=== PATIENT | female | born 1960 | race Caucasian/White ===

== ENCOUNTER 2017-05-23 18:09 | Inpatient (IN) | payer OTHER ==
[~2017-05-23] VITALS: Ht 157.5 cm; Wt 67.2 kg
[~2017-05-23 18:09] MED LIST: DOCU-144 PO; GLIM4TAB55 PO; HYDR-906 PO; IBUP-1542 PO; INSU100C SQ; LANT3I SC; LISI30TA PO; METF500T4 PO
[2017-05-23 20:00] VITALS: Ht 157.5 cm; Wt 67.2 kg
[2017-05-23 20:41] VITALS: PULSE 85
[2017-05-23 21:00] VITALS: BP 128/71; RESP 15
[2017-05-23] MEDS ORDERED: LORAZEPAM 0.5 MG TAB PO PRN (21:30)
[2017-05-23] MEDS ORDERED: NITROGLYCERIN (SL) 0.4 MG TAB SL PRN (21:30)
[2017-05-23] MEDS: ACETAMINOPHEN 325 MG TAB PO PRN (21:54)
[2017-05-23] MEDS ORDERED: GLUCOSE GEL 15 GRAM TUBE PO PRN ×2 (22:00)
[2017-05-23] MEDS ORDERED: GLUCAGON 1 MG INJ IM PRN (22:00)
[2017-05-23] MEDS ORDERED: GLUCOSE GEL 15 GRAM TUBE BUCCAL PRN (22:00)
[2017-05-23] MEDS ORDERED: DEXTROSE 50% 50 ML SYRINGE IV PRN ×2 (22:00)
[2017-05-23] MEDS: ATORVASTATIN 20 MG TAB PO SCH (23:38)
[2017-05-23] MEDS: HEPARIN 5,000 UNIT/0.5 ML VIAL SC SCH (23:48)
[2017-05-23] MEDS: INSULIN GLARGINE [LANtus] 3 ML PEN SC SCH (23:48)
[2017-05-24] VITALS (13 sets, daily range): BP systolic 116–131; BP diastolic 63–75; PULSE 73–94; RESP 15–20
[2017-05-24 01:15] LABS: BASOPHILS % 0.6 % (0.0-2.0); EOSINOPHILS # 0.1 10^3/ul (0.0-0.5); HEMATOCRIT 35.3 % (37.0-47.0); LYMPHOCYTES # 2.3 10^3/ul (0.8-2.9); LYMPHOCYTES % 35.5 % (15.0-51.0); MEAN CORPUSCULAR HEMOGLOBIN 30.8 pg (29.0-33.0); MEAN CORPUSCULAR VOLUME 90.7 fl (82.0-101.0); MEAN PLATELET VOLUME 10.4 fl (7.4-10.4); MONOCYTE # 0.5 10^3/ul (0.3-0.9); MONOCYTES % 7.3 % (0.0-11.0); NEUTROPHILS % 54.1 % (39.0-77.0); PLATELET COUNT 198 10^3/UL (140-415); RED BLOOD COUNT 3.89 10^6/ul (4.20-5.40); RED CELL DISTRIBUTION WIDTH 12.6 % (11.5-14.5); WHITE BLOOD COUNT 6.5 10^3/ul (4.8-10.8)
[2017-05-24 01:36] LABS: ALBUMIN 3.1 g/dl (3.3-4.9); ALBUMIN/GLOBULIN RATIO 1.1; BILIRUBIN,INDIRECT 0.1 mg/dl (0-1.1); BILIRUBIN,TOTAL 0.1 mg/dl (0.2-1.3); CALCIUM 8.7 mg/dl (8.4-10.2); CREATINE KINASE 28 IU/L (23-200); CREATININE 0.58 mg/dl (0.44-1.00); MAGNESIUM 1.8 mg/dl (1.7-2.5); POTASSIUM 3.9 mmol/L (3.5-5.1); TOTAL PROTEIN 5.9 g/dl (6.1-8.1)
[2017-05-24 01:49] LABS: CK-MB 0.42 ng/ml (0.0-2.4)
[2017-05-24 01:54] LABS: TROPONIN-I < 0.012 ng/ml (0.00-0.12)
[2017-05-24] MEDS: ACCU-CHEK XX SCH (02:00)
[2017-05-24 02:50] LABS: THYROID STIMULATING HORMONE 1.73 MIU/L (0.465-4.680)
[2017-05-24] MEDS ORDERED: GLIMEPIRIDE 4 MG TAB PO SCH (07:25)
[2017-05-24 07:38] LABS: CREATINE KINASE 27 IU/L (23-200)
[2017-05-24 07:45] LABS: CK-MB 0.43 ng/ml (0.0-2.4)
[2017-05-24 07:47] LABS: TROPONIN-I < 0.012 ng/ml (0.00-0.12)
[2017-05-24] MEDS: ACETAMINOPHEN 325 MG TAB PO PRN ×2 (08:15→23:36)
[2017-05-24] MEDS: LISINOPRIL 10 MG TAB GTB SCH (08:16)
[2017-05-24] MEDS: INSULIN ASPART [NOVOLOG] 3 ML PEN SC SCH ×4 (08:20→20:46)
[2017-05-24] MEDS: HEPARIN 5,000 UNIT/0.5 ML VIAL SC SCH ×2 (08:20→20:45)
--- NOTE | 2017-05-24 09:41 | HP ---
Date/Time of Note Date/Time of Note DATE: 05/24/17 TIME: 09:41 Assessment/Plan VTE Prophylaxis VTE Prophylaxis Intervention: SCD's Lines/Catheters IV Catheter Type (from Nrsg): Saline Lock Assessment/Plan Assessment/Plan This is a 56-year-old female who initially presented to outside hospital for evaluation of 1 week duration of chest pain with radiation to neck and right upper and lower extremities. 1. Reproducible Chest pain/right upper neck and lower extremity numbness. Unlikely cardiac etiology. Most likely her symptoms secondary to underlying uncontrolled diabetes and possible diabetic neuropathy. Improved with pain medications. -Rule out ACS with 3 serial troponins, serial EKG and 2D echocardiogram. -Obtain vitamin D and B12 to rule out other endocrinopathies causing patient's symptoms. -We will also obtain A1c, TSH and fasting lipid panel. -Start Gabapentin 2. Hypertension. Stable -Continue antihypertensives 3. Type 2 diabetes,uncontrolled -Follow-up A1c -Continue Lantus, Accu-Cheks and insulin sliding scale. Hold Metformin for now. -Will consider starting premeal Aspart -DM education 4. Dyslipidemia -On statin Plan: Follow-up with labs. Continue with pain control. If troponins negative, consider discharge planning in a.m. Rest of the management depend on clinical course. Approximately 60 minutes was spent on this history and physical. Case discussed with Dr.Rahi SINCLAIR/WES Admit Date/Time Admit Date/Time May 23, 2017 at 19:39 Hx of Present Illness This is a 56-year-old female with a past medical history of dyslipidemia, type 2 diabetes, hypertension, glaucoma, cholecystectomy, C- sections, who initially presented to outside hospital for evaluation of 1 week duration of chest pain. Her pain was not associated with any activities. Patient also had radiation of pain to right side of the neck and back of the head with right arm and right leg numbness. Her chest pain also was reproducible. Initial labs were unremarkable and the outside hospital except for glucose 324. Patient was transferred to [facility] for insurance purposes. At my encounter with the patient, she denied any palpitation, shortness of breath, loss of consciousness, nausea, vomiting, abdominal pain, fever or chills. She also did not have any chest pain anymore. However, patient continued to have radiating pain on right side of the neck and both right arm and leg. Troponin is negative. EKG negative for any acute ST or T-wave changes. Vital signs within acceptable range. ROS A 12 point review of system was assessed and is negative other than what is mentioned in HPI. PMH/Family/Social Past Medical History see HPI Past Surgical History See HPI Social History Denied history of smoking, alcohol or illicit drug use. Smoking Status: Never smoker Exam/Review of Systems Vital Signs Vitals Vital Signs Date Time Temp Pulse Resp B/P Pulse Ox O2 Delivery O2 Flow Rate FiO2 05/24/17 08:11 81 05/24/17 07:39 98.2 20 131/75 96 Intake and Output 05/23/17 05/23/17 05/24/17 15:00 23:00 07:00 Intake Total 360 ml 540 ml Balance 360 ml 540 ml Exam Exam General: Well developed female not in any acute distress . HEENT: Normocephalic, Atraumatic, No laceration or hematoma; Eyes: PEERL, Conjunctiva clear, Anicteric sclera Neck: Supple without any lymphadenopathy, nontender, no JVD, no carotid bruits, trachea midline, no thyromegaly Cardiac: S1, S2 auscultated, regular rhythm and rate, no mumurs or gallop Pulmonary: Normal respiratory effort. Chest clear to auscultation bilaterally, no adventitious breath sounds GI: Abdomen normal to inspection. Soft, non tender, non- distended, no masses, no rebound tenderness or guarding. Bowel sounds active on all four quadrants Genitourinary: Deferred Extremities: No cyanosis, clubbing, or edema. Pulses [2+] bilaterally. Full ROM on all four extremities. No focal weakness appreciated. Neurologic: Alert to person, place, time, and situation. Affect appropriate, intact sensation. Skin: Clean,dry, and intact. No ecchymosis, no rashes, or lesions Labs Result Diagram: 05/24/175405/24/1754 Medications Medications Current Medications Diagnostic Test (Pha) (Accu-Chek) 1 XX ; Start 05/24/17 at 02:00 Nitroglycerin (Nitroglycerin (Sl Tab) 0.4 Mg) 1 tab Q5M PRN SL ANGINA Last administered on 05/23/17t 21:56; Admin Dose 1 TAB; Start 05/23/17 at 21:30 Acetaminophen (Tylenol Tab) 650 mg Q6H PRN PO PAIN AND OR ELEVATED TEMP Last administered on 05/24/17 08:15; Admin Dose 650 MG; Start 05/23/17 at 21:30 Heparin Sodium (Porcine) (Heparin (5000 Units/0.5 ml)) 5,000 unit BID SC Last administered on 05/24/17 08:20; Admin Dose 5,000 UNIT; Start 05/23/17 at 22:18 Lorazepam (Ativan) 0.5 mg Q3H PRN PO ANXIETY; Start 05/23/17 at 21:30 Insulin Glargine (Lantus) 35 unit DAILY@20 SC Last administered on 05/23/17 23 :48; Admin Dose 35 UNIT; Start 05/23/17 at 21:00 Lisinopril (Zestril) 30 mg DAILY GTB Last administered on 05/24/17 08:16; Admin Dose 30 MG; Start 05/24/17 at 09:00 Atorvastatin Calcium (Lipitor) 20 mg HS PO Last administered on 05/23/17 23:38 ; Admin Dose 20 MG; Start 05/23/17 at 22:19 Miscellaneous Information 1 ea NOTE XX ; Start 05/23/17 at 22:00 Glucose (Glutose) 15 gm Q15M PRN PO DECREASED GLUCOSE; Start 05/23/17 at 22:00 Glucose (Glutose) 22.5 gm Q15M PRN PO DECREASED GLUCOSE; Start 05/23/17 at 22: 00 Dextrose (D50w Syringe) 25 ml Q15M PRN IV DECREASED GLUCOSE; Start 05/23/17 at 22:00 Dextrose (D50w Syringe) 50 ml Q15M PRN IV DECREASED GLUCOSE; Start 05/23/17 at 22:00 Glucagon (Glucagen) 1 mg Q15M PRN IM DECREASED GLUCOSE; Start 05/23/17 at 22:00 Glucose (Glutose) 15 gm Q15M PRN BUCCAL DECREASED GLUCOSE; Start 05/23/17 at 22 :00 YULIYA DAVIS NP May 24, 2017 09:41
[2017-05-24] MEDS: ATORVASTATIN 20 MG TAB PO SCH (20:34)
[2017-05-24] MEDS: GABAPENTIN 100 MG CAP PO SCH (20:34)
[2017-05-24] MEDS: INSULIN GLARGINE [LANtus] 3 ML PEN SC SCH (20:46)
[2017-05-25] VITALS (7 sets, daily range): BP systolic 102–116; BP diastolic 62–66; PULSE 73–90; RESP 15–16
[2017-05-25] MEDS: ACCU-CHEK XX SCH (02:48)
[2017-05-25] MEDS: INSULIN ASPART [NOVOLOG] 3 ML PEN SC SCH ×4 (07:57→11:50)
[2017-05-25] MEDS: LISINOPRIL 10 MG TAB GTB SCH (08:13)
[2017-05-25] MEDS: GABAPENTIN 100 MG CAP PO SCH ×2 (08:13→13:00)
[2017-05-25] MEDS: HEPARIN 5,000 UNIT/0.5 ML VIAL SC SCH (08:20)
[2017-05-25] MEDS ORDERED: ERGOCALCIFEROL 50,000 UNIT CAP PO SCH (09:00)
[2017-05-25] MEDS ORDERED: CHOLECALCIFEROL 2,000 UNIT CAP PO SCH (09:00)
[2017-05-25] MEDS ORDERED: ERGOCALCIFEROL 50,000 UNIT CAP PO ONE (10:00)
--- NOTE | 2017-05-25 10:06 | PDOCDIS ---
Discharge Instructions DIAGNOSIS Discharge Diagnosis Atypical right sided chest wall pain my: Diabetes mellitus type 2 not adequately controlled; vitamin D deficiency; hyperlipidemia CONDITION Patient Condition: Good HOME CARE INSTRUCTIONS: Special Diet: Diabetic ACTIVITY: Activity Restrictions: No Restrictions FOLLOW UP/APPOINTMENTS Follow-up Plan Follow-up with primary care physician at [facility]. His needs to be done within the next 2 weeks for evaluation of chronic right chest wall pain which may be secondary to statin therapy SCHOOL/WORK RELEASE May return to School/Work with: No Restrictions ERIKA CLIFFORD MD May 25, 2017 10:06
[2017-05-25] MEDS ORDERED: CHOL200073 PO (10:09)
[2017-05-25] MEDS ORDERED: GLIM4TAB55 PO (10:09)
[2017-05-25] MEDS ORDERED: METF500T4 PO (10:09)
[2017-05-25] MEDS ORDERED: ATOR20TA65 PO (10:09)
--- NOTE | 2017-05-25 10:12 | DS ---
Date/Time of Note Date/Time of Note DATE: 05/25/17 TIME: 10:10 Discharge Summary Admission/Discharge Info Admit Date/Time May 23, 2017 at 19:39 Discharge Date/Time May 25, 2017 Discharge Diagnosis Atypical right sided chest wall pain my: Diabetes mellitus type 2 not adequately controlled; vitamin D deficiency; hyperlipidemia: Hypertension Patient Condition: Good Hx of Present Illness This is a 56-year-old female with a past medical history of dyslipidemia, type 2 diabetes, hypertension, glaucoma, cholecystectomy, C- sections, who initially presented to outside hospital for evaluation of 1 week duration of chest pain. Her pain was not associated with any activities. Patient also had radiation of pain to right side of the neck and back of the head with right arm and right leg numbness. Her chest pain also was reproducible. Initial labs were unremarkable and the outside hospital except for glucose 324. Patient was transferred to [facility] for insurance purposes. At my encounter with the patient, she denied any palpitation, shortness of breath, loss of consciousness, nausea, vomiting, abdominal pain, fever or chills. She also did not have any chest pain anymore. However, patient continued to have radiating pain on right side of the neck and both right arm and leg. Troponin is negative. EKG negative for any acute ST or T-wave changes. Vital signs within acceptable range. Hospital Course Charming 56-year-old female with cardiac risk factors. She has gone through formalized rule out protocol with negative troponins. On review of her history this is extremely atypical and not characteristic of cardiac symptomatology at all. As such she is stable for discharge. Please note her blood sugar control is in adequate. We will be making adjustments to her regimen to see if we can improve her glycemic control. She will now be discharged in improved condition as compared to the time of admission. She has no known communicable diseases she is not hazard to herself or others she is competent for medical decision-making her rehabilitation potential is good. She will follow-up with her colleagues at [facility] in the next 10 days. Home Meds Active Scripts Atorvastatin Calcium (Atorvastatin Calcium) 20 Mg Tablet, 20 MG PO HS for 30 Days, TAB Prov:ERIKA CLIFFORD MD 05/25/17 Cholecalciferol (Vitamin D3) (VITAMIN D-3) 2,000 Unit Capsule, 2000 UNIT PO DAILY for 30 Days, CAP Prov:ERIKA CLIFFORD MD 05/25/17 Metformin Hcl* (Metformin Hcl*) 500 Mg Tablet, 500 MG PO BID WITH MEALS for 30 Days, #60 TAB Prov:ERIKA CLIFFORD MD 05/25/17 Glimepiride* (Amaryl*) 4 Mg Tablet, 4 MG PO BID WITH MEALS for 30 Days, #60 TAB Prov:ERIKA CLIFFORD MD 05/25/17 Docusate Sodium* (Colace*) 100 Mg Capsule, 100 MG PO TID for 3 Days, #30 CAP Prov:MOISES RUBALCAVA Isabel 05/11/16 Ibuprofen* (Motrin*) 600 Mg Tab, 600 MG PO Q6, #30 TAB Prov:KHADAR,MOISES C 05/11/16 Hydrocodone/Acetaminophen ([place] 5-325 Tablet) 1 Each Tablet, 1 EACH PO Q4, #20 TAB Prov:MOISES RUBALCAVA Isabel 05/11/16 Reported Medications Lisinopril* (Zestril*) 30 Mg Tablet, 30 MG PO DAILY, #30 TAB 05/24/16 Insulin Glargine* (Lantus*) 100 Unit/Ml Soln, 1 UNIT SC QHS, #1 VIAL 05/24/16 Insulin Lispro (Humalog) 100 Unit/1 Ml Cartridge, 100 UNIT SQ 05/24/16 Primary Care Provider [facility] Time spent on discharge: > 30 minutes Pending Labs Laboratory Tests Test 05/24/17 11:42 05/24/17 17:16 05/24/17 17:45 05/24/17 20:32 Bedside Glucose 291mg/dL (70-220) 237mg/dL (70-220) 294mg/dL (70-220) Troponin I < 0.012ng/ml (0.00-0.12) Test 05/25/17 01:31 05/25/17 07:51 Bedside Glucose 275mg/dL (70-220) 165mg/dL (70-220) ERIKA CLIFFORD MD May 25, 2017 10:12
--- NOTE | 2017-05-28 14:16 | RADRPT ---
Echocardiogram Report Patient Name: ALMA ROSA YUN Gender: Female Date: 1960 Study Date: 25-May-2017 Hospitalist Physician: CYNDI Location: I Ref. Physician: YULIYA DAVIS Quality: Adequate Procedures: Transthoracic echocardiogram with 2D, M-Mode, and Doppler examination, poor subcostal images. Indications: Chest Pain. 2D/M Mode Doppler Measurement Value Normal Ranges Measurement Value Normal Ranges AoR Diam MM 2.5 cm AV Peak Jesús 1.1 m/sec ACS MM 1.7 cm AV Peak PG 4.8 mmHg LVIDd 2D 3.3 3.5 - 5.6 cm LVOT Peak Jesús 0.8 m/sec LVIDs 2D 2.1 2.1 - 4.1 cm LVOT Peak PG 2.7 mmHg LVPWd 2D 0.8 0.6 - 1.1 cm MV E Peak Jesús 0.8 m/sec IVSd 2D 1.0 0.6 - 1.1 cm MV A Peak Jesús 0.5 m/sec EDV 2D 45.6 cm3 MV E/A 1.5 ESV 2D 9.1 cm3 MV Decel Time 150 msec LA Dimen 2D 3.2 2.3 - 4.0 cm MV Decel [place] 5 MV E/A 1.5 PV Peak Jesús 0.9 m/sec PV Peak PG 3.0 mmHg Findings Left Ventricle: Normal left ventricular systolic function. Normal left ventricular cavity size. Normal left ventricular wall thickness. Ejection fraction is visually estimated at 60 %. Tissue Doppler/Mitral Doppler indices are within normal limits. E/E`=7. E`=0 cm/s. Right Ventricle: Normal right ventricular size. Normal right ventricular systolic function. Left Atrium: The left atrium is normal in size. Right Atrium: The right atrium is normal in size. Atrial Septum: Not well visualized. Mitral Valve: Normal appearance of the mitral valve. Trace mitral regurgitation. Aortic Valve: No significant aortic stenosis or insufficiency. Normal trileaflet aortic valve structure. Tricuspid Valve: Normal appearance and function of the tricuspid valve with trace physiologic regurgitation. Pulmonic Valve: Normal pulmonic valve appearance. No evidence of pulmonic regurgitation. Pericardium: Normal pericardium with no significant pericardial effusion. Aorta: Normal aortic root. IVC: Normal size and normal respiratory collapse consistent with normal right atrial pressure. Pulmonary Artery: Normal pulmonary artery size. Conclusions 1.Normal left ventricular systolic function. Normal left ventricular cavity size. Normal left ventricular wall thickness. Ejection fraction is visually estimated at 60 %. Tissue Doppler/Mitral Doppler indices are within normal limits. E/E`=7. E`=0 cm/s. 2.Normal appearance of the mitral valve. Trace mitral regurgitation. 3.Normal appearance and function of the tricuspid valve with trace physiologic regurgitation. Electronically Signed By: Robbie Lamb 28-May-2017 14:15:20 -0700 Patient Name: ALMA ROSA YUN Study Date: 25-May-2017 [id number]
== END 2017-05-25 13:18 | disposition home or self-care (01) | DRG 313 ==
LOC: TEL 19:39
PROVIDERS: ADMIT Internal Medicine; ATTEND Internal Medicine
DX: R07.89 Other chest pain (principal); E11.42 Type 2 diabetes mellitus with diabetic polyneuropathy; E11.65 Type 2 diabetes mellitus with hyperglycemia; I10 Essential (primary) hypertension; E78.5 Hyperlipidemia, unspecified; Z79.4 Long term (current) use of insulin
CPT/HCPCS: 80053; 82550; 82553; 82607; 82652; 82962; 83036; 83735; 84100; 84443; 84484; 85025; 93306; J1644; J1815

== ENCOUNTER 2017-10-14 09:18 | Day surgery (SDC) | END 2017-10-14 15:15 | disposition home or self-care (01) ==

== ENCOUNTER 2019-01-18 21:41 | Emergency (ER) | payer OTHER ==
[~2019-01-18] VITALS: Ht 154.9 cm; Wt 63.0 kg
[~2019-01-18 21:41] MED LIST changes: +ATOR20TA65 PO; +CHOL200073 PO; -HYDR-906 PO; -IBUP-1542 PO; -INSU100C SQ; -LANT3I SC; +METF500T24 PO; -METF500T4 PO
[2019-01-18 22:10] VITALS: Ht 154.9 cm; Wt 63.0 kg
[2019-01-18] MEDS ORDERED: SODIUM CHLORIDE 0.9% 1L BAG IV* STA (22:10)
[2019-01-18] MEDS ORDERED: ONDANSETRON 4 MG INJ IV STA ×2 (22:14→23:36)
[2019-01-18] MEDS ORDERED: KETOROLAC 30 MG INJ IV STA (22:14)
[2019-01-18] MEDS ORDERED: morphine 4 MG/ML VIAL IV STA (23:36)
--- NOTE | 2019-01-18 23:47 | ERD ---
ER Documentation Chief Complaint Chief Complaint right flank pain radiating around to front lower abd/pelvis x 6 hours HPI This is a 58-year-old female presents ration of right flank pain radiating to the lower abdomen for the last 6 hours. Patient reports dysuria, she denies nausea or vomiting. She has not had a fever. There are no alleviating or aggravating factors, symptoms are intermittent. She has a prior history of a ch olecystectomy, ROS All systems reviewed and are negative except as per history of present illness. Medications Home Meds Active Scripts Atorvastatin Calcium (Atorvastatin Calcium) 20 Mg Tablet, 20 MG PO HS for 30 Days, TAB Prov:ERIKA CLIFFORD MD 05/25/17 Cholecalciferol (Vitamin D3) (VITAMIN D-3) 2,000 Unit Capsule, 2000 UNIT PO DAILY for 30 Days, CAP Prov:ERIKA CLIFFORD MD 05/25/17 Metformin Hcl* (Metformin Hcl*) 500 Mg Tablet, 500 MG PO BID WITH MEALS for 30 Days, #60 TAB Prov:ERIKA CLIFFORD MD 05/25/17 Glimepiride* (Amaryl*) 4 Mg Tablet, 4 MG PO BID WITH MEALS for 30 Days, #60 TAB Prov:ERIKA CLIFFORD MD 05/25/17 Docusate Sodium* (Colace*) 100 Mg Capsule, 100 MG PO TID for 3 Days, #30 CAP Prov:MOISES RUBALCAVA 05/11/16 Reported Medications Lisinopril* (Zestril*) 30 Mg Tablet, 30 MG PO DAILY, #30 TAB 05/24/16 Allergies Allergies: Coded Allergies: codeine (Verified Adverse Reaction, Mild, NAUSEA, 01/18/19) PMhx/Soc History of Surgery: Yes (HYSTERECTOMY, X3, APPENDECTOMY, CHOLECYSECTOMY) Anesthesia Reaction: No Hx Neurological Disorder: No Hx Respiratory Disorders: No Hx Cardiac Disorders: Yes (HYPERTENSION) Hx Psychiatric Problems: No Hx Miscellaneous Medical Probl: No (HYPERLIPIDEMIA) Hx Alcohol Use: No Hx Substance Use: No Hx Tobacco Use: No Smoking Status: Never smoker Physical Exam Vitals Vital Signs Date Temp Pulse Resp B/P (MAP) Pulse Ox O2 O2 Flow FiO2 Time Delivery Rate 01/18/19 99.5 94 19 163/88 99 Room Air 22:32 (113) 01/18/19 99.5 105 19 163/88 99 22:10 (113) Physical Exam Const: No acute distress Head: Atraumatic Eyes: Normal Conjunctiva ENT: Normal External Ears, Nose and Mouth. Neck: Full range of motion. No meningismus. Resp: Clear to auscultation bilaterally Cardio: Regular rate and rhythm, no murmurs Abd: Soft, non tender, non distended, no right upper quadrant tenderness, negative Adame sign, no McBurney's point tenderness, no rebound or guarding. Normal bowel sounds Skin: No petechiae or rashes Back: No midline or flank tenderness Ext: No cyanosis, or edema Neur: Awake and alert Psych: Normal Mood and Affect Result Diagram: 01/18/19222301/18/192224 Results 24 hrs Laboratory Tests Test 01/18/19 22:18 01/18/19 22:24 01/18/19 22:25 01/18/19 22:27 Bedside Urine pH 5.5 (LAB) Bedside Urine 3+ Protein (LAB) Bedside Urine 0.50% Glucose (UA) Bedside Urine 3+ Ketones (LAB) Bedside Urine 3+ Blood Bedside Urine Positive Nitrite (LAB) Bedside Urine Trace Leukocyte Esterase (L White Blood Count 13.1 10^3/ul Red Blood Count 4.57 10^6/ul Hemoglobin 13.7 g/dl Hematocrit 40.2 % Mean Corpuscular 88.0 fl Volume Mean Corpuscular 30.0 pg Hemoglobin Mean Corpuscular 34.1 g/dl Hemoglobin Concent Red Cell 12.2 % Distribution Width Platelet Count 255 10^3/UL Mean Platelet 10.0 fl Volume Immature 0.500 % Granulocytes % Neutrophils % 87.2 % Lymphocytes % 7.1 % Monocytes % 4.6 % Eosinophils % 0.3 % Basophils % 0.3 % Nucleated Red 0.0 /100WBC Blood Cells % Immature 0.070 10^3/ul Granulocytes # Neutrophils # 11.4 10^3/ul Lymphocytes # 0.9 10^3/ul Monocytes # 0.6 10^3/ul Eosinophils # 0.0 10^3/ul Basophils # 0.0 10^3/ul Nucleated Red 0.0 10^3/ul Blood Cells # Prothrombin Time 11.6 Sec Prothrombin Time 0.9 Ratio INR International 0.84 Normalized Ratio Activated 24.[address] Time Sodium Level 139 mmol/L Potassium Level 4.7 mmol/L Chloride Level 99 mmol/L Carbon Dioxide 31 mmol/L Level Anion Gap 9 Blood Urea 23 mg/dl Nitrogen Creatinine 0.55 mg/dl Est Glomerular > 60 mL/min Filtrat Rate mL/min Glucose Level 298 mg/dl Calcium Level 9.9 mg/dl Total Bilirubin 0.4 mg/dl Direct Bilirubin 0.00 mg/dl Indirect Bilirubin 0.4 mg/dl Aspartate Amino 32 IU/L Transf (AST/SGOT) Alanine 44 IU/L Aminotransferase ( ALT/SGPT) Alkaline 156 IU/L Phosphatase Troponin I < 0.012 ng/ml Total Protein 7.8 g/dl Albumin 4.5 g/dl Globulin 3.30 g/dl Albumin/Globulin 1.36 Ratio POC Venous Lactate 1.4 mmol/L Current Medications Medications Dose Sig/Regi Start Time Status Last (Trade) Ordered Route PRN Stop Time Admin Dose Reason Admin Sodium 1,860 ml BOLUS OVER 2 01/18/19 DC 01/18/19 Chloride HOURS STAT 22:10 22:21 (NS) IV* 01/18/19 22:13 Ondansetron 4 mg ONCE STAT 01/18/19 DC 01/18/19 HCl (Zofran IV 22:14 22:21 Inj) 01/18/19 22:15 Ketorolac 30 mg ONCE STAT 01/18/19 DC 01/18/19 Tromethamine IV 22:14 22:22 (Toradol) 01/18/19 22:15 Ceftriaxone 50 ml @ ONCE ONCE 01/19/19 01/19/19 Sodium 100 mls/hr IVPB 00:00 00:00 01/19/19 00:29 Morphine 4 mg ONCE STAT 01/18/19 DC 01/19/19 Sulfate IV 23:36 00:06 (morphine) 01/18/19 23:59 Ondansetron 4 mg ONCE STAT 01/18/19 DC 01/19/19 HCl (Zofran IV 23:36 00:06 Inj) 01/18/19 23:40 Procedures/MDM This 58-year-old female presents for ablation of right flank pain. Urinalysis was consistent with signs of infection, she was treated for pyelonephritis, she was given 30 cc/kg's of IV fluids, and ceftriaxone. Patient remained he medically stable in the ED. on serial reassessments, the patient felt significantly better, she did endorse a history of chronic constipation, and she is prior to treatment for stool softeners, she had no evidence of DKA on labs, she had no evidence of severe sepsis or septic shock. I discussed options of inpatient versus outpatient treatment, as the patient was tolerating oral intake , her pain had significantly improved, and she remained hemodynamically stable in the ED, shared decision-making was made to treat as an outpatient, at discharge the patient was in no distress. EKG: Rate/Rhythm: Normal Sinus Rhythm QRS, ST, T-waves: No changes consistent w/ acute ischemia Impression: No evidence of ischemia or arrhythmia Sepsis Documentation: Patient's infectious symptoms have not stabilized and the patient is at risk of rapid decompensation. The patient will be admitted for careful hydration, antibiotic therapy, and infectious source control. SEVERE SEPSIS CRITERIA: Infectious source: Urinary tract infection End organ damage indicated by: No evidence of endorgan damage SEPSIS MANAGEMENT Time of recognition of sepsis: [Upon arrival]. Time of recognition of severe sepsis: [No severe sepsis at this time]. Time of recognition of septic shock: [No septic shock at this time]. 3 HOUR BUNDLE Blood cultures x 2 before broad-spectrum antibiotics: [Yes] 30 ml/kg NS bolus [Completed] Initial lactate 1.4] Repeat lactate pending] CRITICAL CARE Critical care time [35] minutes Emergent fluid management while maintaining close respiratory support. Provisio n of immediate and broad-spectrum antibiotic therapy. Simultaneous assessment for possible sources in order to direct targeted therapy. Consideration for invasive and chemical support to prevent cardiopulmonary collapse. Critical care time is independent of procedures performed. Departure Diagnosis: Primary Impression: Flank pain Additional Impression: Pyelonephritis Condition: Stable ADRIANNE MAS MD Jan 18, 2019 23:47
[2019-01-19] MEDS ORDERED: CEFTRIAXONE 1 GM/50 ML (PMX) 50 ML IVPB ONE
[2019-01-19] MEDS ORDERED: CEPH-443 PO (00:46)
[2019-01-19] MEDS ORDERED: POLY17PO6 PO (00:46)
[2019-01-19 00:56] VITALS: BP 131/73; PULSE 86; RESP 14
== END 2019-01-19 01:12 | disposition home or self-care (01) ==
LOC: E/R 21:41
DX: N12 Tubulo-interstitial nephritis, not specified as acute or chronic (principal); I10 Essential (primary) hypertension; E11.9 Type 2 diabetes mellitus without complications; Z79.84 Long term (current) use of oral hypoglycemic drugs
CPT/HCPCS: 71045; 74176; 80053; 81003; 83605; 84484; 85025; 85610; 85730; 87040; 93005; J0696; J1885; J2270; J2405; J7030; 96374; 96375; 96376